=== PATIENT | female | born 1985 | race Two or more races ===

== ENCOUNTER 2024-08-15 21:05 | Emergency (ER) | payer MEDICAID, OTHER ==
[~2024-08-15] VITALS: Ht 165.1 cm; Wt 74.8 kg
[2024-08-15] MEDS ORDERED: RALT400T PO (22:22)
[2024-08-15] MEDS ORDERED: EMTR1TAB6 PO (22:22)
[2024-08-15] MEDS ORDERED: LAMIVUDINE/ZIDOVUDINE 150-300 1 TAB TABLET PO ONE (22:30)
[2024-08-15] MEDS ORDERED: TDAP [DIPH/PERTUSSIS/TET] 0.5 ML VIAL IM ONE (22:34)
[2024-08-15] MEDS: EMTRICITABINE/TENOFOVIR 1 TAB PO ONE (22:45)
[2024-08-15] MEDS: RALTEGRAVIR POTASSIUM 400 MG TABLET PO ONE (22:45)
[2024-08-15] MEDS: TDAP [DIPH/PERTUSSIS/TET] 0.5 ML VIAL IM ONE (22:46)
[2024-08-15 22:49] VITALS: BP 118/70; TEMP 98.4; O2SAT 98
[2024-08-19 02:07] LABS: HEPATITIS B SURFACE AB Non Reactive (.)
== END 2024-08-15 22:50 | disposition home or self-care (01) ==
LOC: ER 21:28
DX: S81.832A Puncture wound without foreign body, left lower leg, initial encounter (principal); Z79.624 Long term (current) use of inhibitors of nucleotide synthesis; Z88.0 Allergy status to penicillin; Z79.899 Other long term (current) drug therapy; W46.0XXA Contact with hypodermic needle, initial encounter; Y93.H9 Activity, other involving exterior property and land maintenance, building and construction; Y92.511 Restaurant or cafe as the place of occurrence of the external cause; Y99.0 Civilian activity done for income or pay
CPT/HCPCS: 86706; 86803; 87806; 90715